=== PATIENT | female | born 1980 | race Caucasian/White ===

== ENCOUNTER 2017-08-21 14:22 | Emergency (ER) | payer OTHER ==
[2017-08-21 14:45] VITALS: RESP 22; TEMP 97.6; O2SAT 100
[2017-08-21] MEDS ORDERED: LORAZEPAM 0.5 MG TAB PO ONE (15:02)
[2017-08-21] MEDS ORDERED: LORAZEPAM 0.5 MG TAB ONE (15:17)
[2017-08-21 15:39] LABS: ALBUMIN 4.1 gm/dl (3.4-5.0); ALT 34 IU/L (14-63); BASOPHILS % (AUTO) 0 % (0-3); CALCIUM 9.5 mg/dl (8.5-10.1); EOSINOPHILS % (AUTO) 1 % (0-9); GLOM FILT RATE 85 mL/min (>60); HEMATOCRIT 40 % (35-47); MEAN CORPUSCULAR HGB CONC 34.7 gm/dl (32.0-36.0); MEAN CORPUSCULAR VOLUME 93 fL (81-99); NEUTROPHILS % (AUTO) 65.1 % (37-80); POTASSIUM 4.4 mMol/L (3.5-5.1); SODIUM 138 mMol/L (136-145)
[2017-08-21 15:56] VITALS: BP 141/99; PULSE 90
== END 2017-08-21 16:39 | disposition home or self-care (01) | DRG 313 ==
LOC: ED 14:22
DX: R07.89 Other chest pain (principal); F41.9 Anxiety disorder, unspecified; M54.5 Low back pain
CPT/HCPCS: 71046; 72120; 80053; 84484; 84703; 85025; 93005; 99283; A9270-GY

== ENCOUNTER 2018-12-02 14:35 | Emergency (ER) | payer OTHER ==
[2018-12-02 14:49] VITALS: TEMP 97.9
[2018-12-02] MEDS ORDERED: DIPHENHYDRAMINE 50 MG/ML SOL IV ONE (15:00)
[2018-12-02] MEDS ORDERED: PROCHLORPERAZINE EDISYLATE 5 MG/ML SOL IV ONE (15:00)
[2018-12-02] MEDS ORDERED: SODIUM CHLORIDE 0.9% 1000ML 1,000 ML IV ONE (15:00)
[2018-12-02] MEDS ORDERED: KETOROLAC TROMETHAMINE 30 MG/ML SOL IV ONE (15:00)
[2018-12-02] MEDS ORDERED: KETOROLAC TROMETHAMINE 30 MG/ML SOL ONE (15:30)
[2018-12-02] MEDS ORDERED: PROCHLORPERAZINE EDISYLATE 5 MG/ML SOL ONE (15:30)
[2018-12-02] MEDS ORDERED: DIPHENHYDRAMINE 50 MG/ML SOL ONE (15:30)
[2018-12-02 16:00] VITALS: RESP 24
[2018-12-02 16:30] VITALS: BP 127/76; PULSE 95; O2SAT 100
== END 2018-12-02 16:47 | disposition home or self-care (01) | DRG 103 ==
LOC: ED 14:35
DX: G43.909 Migraine, unspecified, not intractable, without status migrainosus (principal)
CPT/HCPCS: 96365; 96374; 96375; 99282; 99284; J0780; J1200; J1885

== ENCOUNTER 2019-01-09 14:49 | Outpatient (CLI) | payer OTHER ==
[2018-12-02 16:30] VITALS: O2SAT 100
[2019-01-10 07:07] LABS: *RHEUMATOID FACTOR <10 IU/mL (0-30)
[2019-01-11 09:56] LABS: *LYME DISEASE SCREEN Nonreactive (Nonreactive)
[2019-01-13 08:52] LABS: *ANA SCREEN SEE SCAN REPORT
== END 2019-01-09 14:50 | disposition home or self-care (01) | DRG 556 ==
LOC: CONVCARE 14:49
PROVIDERS: ATTEND Orthopaedic Surgery
DX: M79.621 Pain in right upper arm (principal); M79.641 Pain in right hand
CPT/HCPCS: 36415; 85651